=== PATIENT | male | born 1970 | race Two or more races ===

== ENCOUNTER → 2020-02-29 08:01 | Outpatient (CLI) | payer OTHER | END | disposition home or self-care (01) | LOC: LAB 08:01 | PROVIDERS: ATTEND General Practice | DX: I10 Essential (primary) hypertension (principal); E78.2 Mixed hyperlipidemia; N40.0 Benign prostatic hyperplasia without lower urinary tract symptoms; Z12.11 Encounter for screening for malignant neoplasm of colon; Z20.2 Contact with and (suspected) exposure to infections with a predominantly sexual mode of transmission; Z11.4 Encounter for screening for human immunodeficiency virus [HIV]; Z11.8 Encounter for screening for other infectious and parasitic diseases; B00.0 Eczema herpeticum; N32.89 Other specified disorders of bladder; M76.51 Patellar tendinitis, right knee; M17.0 Bilateral primary osteoarthritis of knee; M32.10 Systemic lupus erythematosus, organ or system involvement unspecified; M10.10 Lead-induced gout, unspecified site; E03.8 Other specified hypothyroidism; C25.8 Malignant neoplasm of overlapping sites of pancreas; C18.9 Malignant neoplasm of colon, unspecified; R05 Cough; M54.89 Other dorsalgia; M25.50 Pain in unspecified joint ==

== ENCOUNTER 2020-02-29 13:02 | Outpatient (CLI) | payer OTHER | END 2020-02-29 13:05 | disposition home or self-care (01) | LOC: SONOGRAMA 13:02 → MAMO-SONO 13:15 | PROVIDERS: ATTEND Internal Medicine Rheumatology | DX: M76.51 Patellar tendinitis, right knee (principal); M25.50 Pain in unspecified joint; M17.11 Unilateral primary osteoarthritis, right knee ==

== ENCOUNTER 2021-04-23 14:08 | Outpatient (CLI) | payer OTHER | END 2021-04-23 14:22 | disposition home or self-care (01) | LOC: SONOGRAMA 14:08 | DX: M77.01 Medial epicondylitis, right elbow (principal); M60.88 Other myositis, other site ==

== ENCOUNTER 2021-12-02 13:51 | Outpatient (CLI) | payer OTHER | END 2021-12-02 15:35 | disposition home or self-care (01) | LOC: TOM 13:51 | PROVIDERS: ATTEND Urology | DX: C61 Malignant neoplasm of prostate (principal) ==

== ENCOUNTER 2021-12-03 08:07 | Outpatient (CLI) | payer OTHER | END 2021-12-03 10:00 | disposition home or self-care (01) | LOC: NUCLEAR 08:07 | PROVIDERS: ATTEND Urology | DX: C61 Malignant neoplasm of prostate (principal) ==

== ENCOUNTER → 2022-01-22 08:55 | Outpatient (CLI) | payer OTHER | END | disposition home or self-care (01) | LOC: LAB 08:55 | PROVIDERS: ATTEND Internal Medicine Hematology & Oncology | DX: C61 Malignant neoplasm of prostate (principal); D59.0 Drug-induced autoimmune hemolytic anemia ==

== ENCOUNTER 2022-03-02 10:52 | Outpatient (CLI) | payer OTHER | END 2022-03-02 10:53 | disposition home or self-care (01) | LOC: LAB 10:52 | PROVIDERS: ATTEND Internal Medicine Hematology & Oncology | DX: R97.20 Elevated prostate specific antigen [PSA] (principal); I10 Essential (primary) hypertension; Z13.1 Encounter for screening for diabetes mellitus; Z13.220 Encounter for screening for lipoid disorders; Z13.29 Encounter for screening for other suspected endocrine disorder; N40.0 Benign prostatic hyperplasia without lower urinary tract symptoms; C61 Malignant neoplasm of prostate ==